=== PATIENT | male | born 1965 | race Caucasian/White ===

== ENCOUNTER 2022-12-03 20:15 | Emergency (ER) | payer OTHER, SELFPAY ==
[2022-12-03 20:23] VITALS: BP 128/64; PULSE 101; RESP 16; TEMP 37.4; O2SAT 99
[2022-12-03 21:36] LABS: Lactate 1.1 mmol/L (0.6-1.4)
[2022-12-03 21:40] LABS: Abs Immature Grans 0.02 10^3/uL (0.0-0.06); Absolute Basophil Count 0.03 10^3/uL (0.0-0.2); Absolute Eosinophil Count 0.13 10^3/uL (0.0-0.7); Absolute Lymphocyte Count 0.81 10^3/uL (1.2-3.4); Absolute Monocyte Count 0.71 10^3/uL (0.1-0.8); Absolute Neutrophil Count 4.32 10^3/uL (1.2-6.7); Basophils % 0.5; Eosinophils % 2.2; HCT 44.1 % (40.0-50.0); HGB 16.2 g/dL (13.5-17.5); Immature Grans % 0.3; Lymphocytes % 13.5; MCH 33.3 pg (27.0-33.0); MCHC 36.7 % (32.0-36.0); MCV 91 fL (80-95); MPV 9.3 fL (8.0-11.0); Monocytes % 11.8; Neutrophils % 71.7; Platelet Count 127 10^3/uL (130-400); RBC 4.87 10^6/uL (4.36-5.78); RDW 11.7 % (11.8-14.1); RDW-SD 38.5 fL; WBC 6.02 10^3/uL (4.4-10.8)
[2022-12-03 21:53] LABS: ALT 62 U/L (16-63); AST 22 U/L (15-37); Albumin 3.8 g/dL (3.4-5.0); Alkaline Phosphatase 78 U/L (46-116); Anion Gap 9.7 mmol/L (3-11); BUN 15 mg/dL (7-18); Bilirubin, Total 1.7 mg/dL (0.2-1.0); CO2 27.3 mmol/L (21.0-32.0); CREATININE 1.1 mg/dL (0.70-1.30); Calcium 8.7 mg/dL (8.5-10.1); Chloride 101 mmol/L (98-107); Glucose 118 mg/dL (74-106); Magnesium 1.8 mg/dL (1.8-2.4); Potassium 4.1 mmol/L (3.5-5.1); Sodium 138 mmol/L (136-145); Total Protein 6.7 g/dL (6.4-8.2)
--- NOTE | 2022-12-03 22:15 | DI.RAD_ITS ---
Exam(s) XR CHEST 2V PA LATERAL EXAM: XR CHEST 2V PA LATERAL CLINICAL HISTORY: Cough, Body aches, R/O PNA. TECHNIQUE: 2D digital imaging was performed. COMPARISON: No exams were available for comparison FINDINGS: 2 views: Heart size is normal. The mediastinum is not widened. Lungs are clear. No infiltrates nor pleural effusions. IMPRESSION: No acute pulmonary findings. DATA REPOSITORY: RADIATION DOSE DELIVERED:
[2022-12-03 22:18] LABS: Bilirubin Negative (Negative); Blood Negative (Negative); Clarity Clear (Clear); Glucose Negative (Negative); Ketones Negative (Negative); Leukocyte Esterase Negative (Negative); Nitrite Negative (Negative)
[2022-12-03] MEDS: Normal Saline 500 ML IV (22:20)
[2022-12-03 22:23] LABS: Bacteria Rare HPF (Negative); C & S Indicated? No; Crystals Negative HPF (Negative); Epithelial Cells Negative HPF (Negative); Mucus Trace (Negative); RBC 0-2 HPF (0-2); WBC 0-2 HPF (0-5)
--- NOTE | 2022-12-03 22:30 | W.ED.GENAD ---
Discharge Plan Disposition Patient Disposition: Home Condition: Stable Discharge Details Clinical Impression: Influenza A, Low platelet count Primary Care Provider: [facility] Provider: Destiny Redding Home Meds and New Rx's Prescriptions: New oseltamivir [Tamiflu] 75 mg capsule 75 mg PO BID 5 Days Qty: 10 0RF benzonatate 100 mg capsule 100 mg PO TID PRN (Reason: cough) Qty: 14 0RF Rx Instructions: Take 1 capsule up to 3 times daily as needed for cough prednisone 20 mg tablet 40 mg PO DAILY 5 Days Qty: 10 0RF Rx Instructions: Take 2 tablets in the a.m. for the next 5 days No Action atorvastatin 20 mg Tablet 20 mg PO DAILY Discharge Instructions Instructions: H1N1 Influenza (ED) Additional Instructions: Take medications as directed. Please use your albuterol inhaler 1 or 2 puffs every 4-6 hours as needed for wheezing or shortness of breath. Follow up with primary care provider in 3-5 days. Return to ED sooner if any worsening or concerns. Increase oral fluids. Stand Alone Forms: School Release Medical Decision Making 57-year-old male presents to the ER with chief complaint of URI type symptoms for the last 3 days. He reports myalgias, fever Tmax 102, headache, productive cough. He did take ibuprofen and Benadryl prior to arrival. He did have a rapid COVID test negative today. Past medical history includes high cholesterol. Does take atorvastatin. He denies any recent long trips, camping or tick bites. 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 Patient also notes that he had a bloody nose today. On initial presentation he is speaking in full sentences. He does have some rhonchi right lower lobe and wheezes in the left upper lobe and left middle lobe. Work-up ordered including CBC CMP urinalysis, magnesium chest x-ray tick and Lyme panel added onto labs, FLUVID. Normal saline 500 cc bolus, albuterol inhaler. Patient is thrombocytopenic, platelets are 127 slightly low MCH 33.3 MCHC 36.7 RDW 11.7 which glucose 118, total bilirubin 1.7 which is slightly high. Urinalysis shows trace protein, trace urobilinogen. Differential diagnosis includes but not limited to pneumonia, URI, viral illness, Lyme, Chest x-ray is within normal limits no acute findings, Lyme panel is pending at this time. Influenza A swab positive. Discussed results with patient who verbalized understanding. Discussed home care. Patient given prescription for prednisone 40 mg p.o. for 5 days, Tamiflu discussed risks and benefits of Tamiflu he opted into the Tamiflu, and [facility]. I also did discuss that he can take [id number] cough suppressants if needed. Patient remained hemodynamically stable, alert and oriented throughout the remainder of his stay, patient was given 15 mg of ketorolac IV and 500 cc normal saline. Albuterol inhaler was given to the patient here in the department. All of his questions were answered to the best my ability. This text was generated using [employer] dictation system, please disregard any oddities of phrase or misspellings. Imaging Data Radiologic Study: Imaging: X-Ray Radiologist's impression: TECHNIQUE: Imaging protocol: Radiologic exam of the chest. Views: 2 views. COMPARISON: No relevant prior studies available. FINDINGS: Lungs: Unremarkable. No consolidation. Pleural spaces: Unremarkable. No pleural effusion. No pneumothorax. Heart/Mediastinum: Unremarkable. No cardiomegaly. Bones/joints: Unremarkable. IMPRESSION: No acute findings. Thank you for allowing us to participate in the care of your patient. Dictated and Authenticated by: Gael Kendall MD Lab Data Lab results reviewed: Yes I reviewed the patient's lab results. Labs: Laboratory Tests Range/Units 12/03/22 12/03/22 12/03/22 21:30 21:30 21:30 WBC (4.4-10.8) 10^3/uL 6.02 RBC (4.36-5.78) 10^6/uL 4.87 Hgb (13.5-17.5) g/dL 16.2 Hct (40.0-50.0) % 44.1 MCV (80-95) fL 91 MCH (27.0-33.0) pg 33.3 H MCHC (32.0-36.0) % 36.7 H RDW (11.8-14.1) % 11.7 L Plt Count (130-400) 10^3/uL 127 L MPV (8.0-11.0) fL 9.3 Immature Gran % 0.3 Neutrophils % 71.7 Lymphocytes % 13.5 Monocytes % 11.8 Eosinophils % 2.2 Basophils % 0.5 Nucleated RBC % (0.0-0.3) % 0.0 Absolute Neutrophils (1.2-6.7) 10^3/uL 4.32 Absolute Lymphocytes (1.2-3.4) 10^3/uL 0.81 L Absolute Monocytes (0.1-0.8) 10^3/uL 0.71 Absolute Eosinophils (0.0-0.7) 10^3/uL 0.13 Absolute Basophils (0.0-0.2) 10^3/uL 0.03 VBG Lactate (0.6-1.4) mmol/L 1.1 Sodium (136-145) mmol/L 138 Potassium (3.5-5.1) mmol/L 4.1 Chloride (98-107) mmol/L 101 Carbon Dioxide (21.0-32.0) mmol/L 27.3 Anion Gap (3-11) mmol/L 9.7 BUN (7-18) mg/dL 15 Creatinine (0.70-1.30) mg/dL 1.1 Est GFR (CKD-EPI 2020) (mL/min/1.73m2) 78.30 Glucose (74-106) mg/dL 118 H Calcium (8.5-10.1) mg/dL 8.7 Magnesium (1.8-2.4) mg/dL 1.8 Total Bilirubin (0.2-1.0) mg/dL 1.7 H AST (15-37) U/L 22 ALT (16-63) U/L 62 Alkaline Phosphatase (46-116) U/L 78 Total Protein (6.4-8.2) g/dL 6.7 Albumin (3.4-5.0) g/dL 3.8 Urine Color (Yellow) Urine Clarity (Clear) Urine pH (5-8) Ur Specific [place] (1.005-1.025) Urine Protein (Negative) mg/dL Urine Ketones (Negative) mg/dL Urine Blood (Negative) Urine Nitrite (Negative) Urine Bilirubin (Negative) Urine Urobilinogen (Up to 0.2) mg/dL Ur Leukocyte Esterase (Negative) Urine RBC (0-2) HPF Urine WBC (0-5) HPF Ur Epithelial Cells (Negative) HPF Urine Crystals (Negative) HPF Urine Bacteria (Negative) HPF Urine Mucus (Negative) Ur Culture Indicated? Urine Glucose (Negative) mg/dL COVID-19 Source SARS-CoV-2 (PCR) (Negative) Influenza Type A (PCR) (Negative) Influenza Type B (PCR) (Negative) RSV (PCR) (Negative) Range/Units 12/03/22 12/03/22 22:00 22:36 WBC (4.4-10.8) 10^3/uL RBC (4.36-5.78) 10^6/uL Hgb (13.5-17.5) g/dL Hct (40.0-50.0) % MCV (80-95) fL MCH (27.0-33.0) pg MCHC (32.0-36.0) % RDW (11.8-14.1) % Plt Count (130-400) 10^3/uL MPV (8.0-11.0) fL Immature Gran % Neutrophils % Lymphocytes % Monocytes % Eosinophils % Basophils % Nucleated RBC % (0.0-0.3) % Absolute Neutrophils (1.2-6.7) 10^3/uL Absolute Lymphocytes (1.2-3.4) 10^3/uL Absolute Monocytes (0.1-0.8) 10^3/uL Absolute Eosinophils (0.0-0.7) 10^3/uL Absolute Basophils (0.0-0.2) 10^3/uL VBG Lactate (0.6-1.4) mmol/L Sodium (136-145) mmol/L Potassium (3.5-5.1) mmol/L Chloride (98-107) mmol/L Carbon Dioxide (21.0-32.0) mmol/L Anion Gap (3-11) mmol/L BUN (7-18) mg/dL Creatinine (0.70-1.30) mg/dL Est GFR (CKD-EPI 2020) (mL/min/1.73m2) Glucose (74-106) mg/dL Calcium (8.5-10.1) mg/dL Magnesium (1.8-2.4) mg/dL Total Bilirubin (0.2-1.0) mg/dL AST (15-37) U/L ALT (16-63) U/L Alkaline Phosphatase (46-116) U/L Total Protein (6.4-8.2) g/dL Albumin (3.4-5.0) g/dL Urine Color (Yellow) Yellow Urine Clarity (Clear) Clear Urine pH (5-8) 7.0 Ur Specific [place] (1.005-1.025) 1.020 Urine Protein (Negative) mg/dL Trace H Urine Ketones (Negative) mg/dL Negative Urine Blood (Negative) Negative Urine Nitrite (Negative) Negative Urine Bilirubin (Negative) Negative Urine Urobilinogen (Up to 0.2) mg/dL 1.0 H Ur Leukocyte Esterase (Negative) Negative Urine RBC (0-2) HPF 0-2 Urine WBC (0-5) HPF 0-2 Ur Epithelial Cells (Negative) HPF Negative Urine Crystals (Negative) HPF Negative Urine Bacteria (Negative) HPF Rare Urine Mucus (Negative) Trace Ur Culture Indicated? No Urine Glucose (Negative) mg/dL Negative COVID-19 Source Nasopharynx SARS-CoV-2 (PCR) (Negative) Negative Influenza Type A (PCR) (Negative) Positive A Influenza Type B (PCR) (Negative) Negative RSV (PCR) (Negative) Negative HPI General Mode of arrival: ambulatory. Date/Time Provider Initiated Documentation: 12/03/22 20:42. Limitations to Documentation: no limitations. Information obtained by: patient, RN notes reviewed and old records reviewed. HPI Narrative: 57-year-old male presents to the ER with chief complaint of URI type symptoms for the last 3 days. He reports myalgias, fever Tmax 102, headache, productive cough. He did take ibuprofen and Benadryl prior to arrival. He did have a rapid COVID test negative today. Past medical history includes high cholesterol. Does take atorvastatin. He denies any recent long trips, camping or tick bites. 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 On initial presentation he is speaking in full sentences. He does have some rhonchi right lower lobe and wheezes in the left upper lobe and left middle lobe. Related Data Home Medications Medication Instructions Recorded Confirmed atorvastatin 20 mg tablet 20 mg PO DAILY 12/03/22 12/03/22 benzonatate 100 mg capsule 100 mg PO TID PRN cough #14 caps 12/03/22 oseltamivir 75 mg capsule (Tamiflu) 75 mg PO BID 5 days #10 caps 12/03/22 prednisone 20 mg tablet 40 mg PO DAILY URI 5 days #10 tabs 12/03/22 Previous Rx's Medication Instructions Recorded benzonatate 100 mg capsule 100 mg PO TID PRN cough #14 caps 12/03/22 oseltamivir 75 mg capsule (Tamiflu) 75 mg PO BID 5 days #10 caps 12/03/22 prednisone 20 mg tablet 40 mg PO DAILY URI 5 days #10 tabs 12/03/22 Allergies Allergy/AdvReac Type Severity Reaction Status Date / Time cefuroxime [From Ceftin] Allergy Unverified 12/03/22 20:29 General Stated Complaint: GenMedical EARNEST: 3 Review of Systems All systems reviewed & are unremarkable except as noted in HPI and below Constitutional Constitutional: Reports as per HPI, Reports chills, Reports fatigue, Reports fever(s) and Reports headache(s) ENT Ears, Nose, Mouth, and Throat: Reports headache(s) Respiratory Respiratory: Reports chest congestion, Reports cough, Reports excessive phlegm production and Reports wheezing Gastrointestinal Gastrointestinal: Denies abdominal pain, Denies melena, Denies hematochezia, Denies change in bowel habits, Denies diarrhea, Denies nausea and Denies vomiting Genitourinary Genitourinary: Denies dysuria Neurologic Neurologic: Reports headache(s) Endocrine Endocrine: Reports fatigue Allergic/Immunologic Allergic/Immunologic: Reports wheezing PFSH All Active Problems (Updated 12/03/22 @ 23:56 by Destiny Redding NP) Influenza A (Acute) Low platelet count (Acute) Medical History (Updated 12/03/22 @ 23:56 by Destiny Redding NP) Hyperlipidemia Social History (Updated 12/03/22 @ 22:35 by Destiny Redding NP) Smoking/Tobacco Use Status: Never Smoking risk assessment performed?: Yes Alcohol Intake: current Alcohol Intake frequency: a few times a week Counseling given: No Substance use type: does not use Exam Narrative Exam Narrative: Constitutional: Alert and oriented x3. Appears stated age. Overweight body habitus. Head: Normocephalic, no trauma. Eyes: Pupils PERRL, Red reflex noted, EOM's intact. Eyelids symmetrical without lesions, discharge, or swelling. ENT: , External ear normal to inspection, no mastoid TTP, swelling, or erythema, Normal dentition, Chest: RRR, Normal S1, S2, distal pulses intact. Resp: Lungs rhonchi in the bases, upper lobes wheezing scattered. Abdomen: Soft, non-distended, Normoactive bowel sounds all 4 quads. Reports uncomfortable all 4 quadrants no masses no guarding no rebound tenderness. Musculoskeletal: Normal gait, 5/5 strength to all four extremities. Skin: No suspicious rashes or lesions. Capillary refill less than 2 sec. Neurologic: Cranial nerves II-XII intact. Alert and oriented x 3. Motor: No deficits noted. Sensory: Intact bilaterally all 4 extremities. Reflexes: DTR's intact bilaterally.. Hematologic/Lymphatic: No ecchymosis, no lymphadenopathy. No lower extremity edema. Course Vital Signs Vital signs: Vital Signs Temperature 37.4 C 12/03/22 20:23 Pulse 101 H 12/03/22 20:23 Respiratory Rate 16 12/03/22 20:23 Blood Pressure 128/64 12/03/22 20:23 Pulse Oximetry 99 12/03/22 20:23 Temperature 37.4 C 12/03/22 20:23 Temperature Source Temporal Artery Scan 12/03/22 20:23 Pulse 101 H 12/03/22 20:23 Respiratory Rate 16 12/03/22 20:23 Respiratory Effort Normal 12/03/22 20:23 Blood Pressure 128/64 12/03/22 20:23 Blood Pressure Position Sitting 12/03/22 20:23 Pulse Oximetry 99 12/03/22 20:23 Oxygen Delivery Method Room Air 12/03/22 20:23 Oxygen Flow Rate 0 12/03/22 20:23 Pain Level 3 12/03/22 20:23 Lab/Test Results Lab/Test Results: Laboratory Tests Range/Units 12/03/22 12/03/22 12/03/22 21:30 21:30 21:30 WBC (4.4-10.8) 10^3/uL 6.02 RBC (4.36-5.78) 10^6/uL 4.87 Hgb (13.5-17.5) g/dL 16.2 Hct (40.0-50.0) % 44.1 MCV (80-95) fL 91 MCH (27.0-33.0) pg 33.3 H MCHC (32.0-36.0) % 36.7 H RDW (11.8-14.1) % 11.7 L Plt Count (130-400) 10^3/uL 127 L MPV (8.0-11.0) fL 9.3 Immature Gran % 0.3 Neutrophils % 71.7 Lymphocytes % 13.5 Monocytes % 11.8 Eosinophils % 2.2 Basophils % 0.5 Nucleated RBC % (0.0-0.3) % 0.0 Absolute Neutrophils (1.2-6.7) 10^3/uL 4.32 Absolute Lymphocytes (1.2-3.4) 10^3/uL 0.81 L Absolute Monocytes (0.1-0.8) 10^3/uL 0.71 Absolute Eosinophils (0.0-0.7) 10^3/uL 0.13 Absolute Basophils (0.0-0.2) 10^3/uL 0.03 VBG Lactate (0.6-1.4) mmol/L 1.1 Sodium (136-145) mmol/L 138 Potassium (3.5-5.1) mmol/L 4.1 Chloride (98-107) mmol/L 101 Carbon Dioxide (21.0-32.0) mmol/L 27.3 Anion Gap (3-11) mmol/L 9.7 BUN (7-18) mg/dL 15 Creatinine (0.70-1.30) mg/dL 1.1 Est GFR (CKD-EPI 2020) (mL/min/1.73m2) 78.30 Glucose (74-106) mg/dL 118 H Calcium (8.5-10.1) mg/dL 8.7 Magnesium (1.8-2.4) mg/dL 1.8 Total Bilirubin (0.2-1.0) mg/dL 1.7 H AST (15-37) U/L 22 ALT (16-63) U/L 62 Alkaline Phosphatase (46-116) U/L 78 Total Protein (6.4-8.2) g/dL 6.7 Albumin (3.4-5.0) g/dL 3.8 Urine Color (Yellow) Urine Clarity (Clear) Urine pH (5-8) Ur Specific [place] (1.005-1.025) Urine Protein (Negative) mg/dL Urine Ketones (Negative) mg/dL Urine Blood (Negative) Urine Nitrite (Negative) Urine Bilirubin (Negative) Urine Urobilinogen (Up to 0.2) mg/dL Ur Leukocyte Esterase (Negative) Urine RBC (0-2) HPF Urine WBC (0-5) HPF Ur Epithelial Cells (Negative) HPF Urine Crystals (Negative) HPF Urine Bacteria (Negative) HPF Urine Mucus (Negative) Ur Culture Indicated? Urine Glucose (Negative) mg/dL Range/Units 12/03/22 22:00 WBC (4.4-10.8) 10^3/uL RBC (4.36-5.78) 10^6/uL Hgb (13.5-17.5) g/dL Hct (40.0-50.0) % MCV (80-95) fL MCH (27.0-33.0) pg MCHC (32.0-36.0) % RDW (11.8-14.1) % Plt Count (130-400) 10^3/uL MPV (8.0-11.0) fL Immature Gran % Neutrophils % Lymphocytes % Monocytes % Eosinophils % Basophils % Nucleated RBC % (0.0-0.3) % Absolute Neutrophils (1.2-6.7) 10^3/uL Absolute Lymphocytes (1.2-3.4) 10^3/uL Absolute Monocytes (0.1-0.8) 10^3/uL Absolute Eosinophils (0.0-0.7) 10^3/uL Absolute Basophils (0.0-0.2) 10^3/uL VBG Lactate (0.6-1.4) mmol/L Sodium (136-145) mmol/L Potassium (3.5-5.1) mmol/L Chloride (98-107) mmol/L Carbon Dioxide (21.0-32.0) mmol/L Anion Gap (3-11) mmol/L BUN (7-18) mg/dL Creatinine (0.70-1.30) mg/dL Est GFR (CKD-EPI 2020) (mL/min/1.73m2) Glucose (74-106) mg/dL Calcium (8.5-10.1) mg/dL Magnesium (1.8-2.4) mg/dL Total Bilirubin (0.2-1.0) mg/dL AST (15-37) U/L ALT (16-63) U/L Alkaline Phosphatase (46-116) U/L Total Protein (6.4-8.2) g/dL Albumin (3.4-5.0) g/dL Urine Color (Yellow) Yellow Urine Clarity (Clear) Clear Urine pH (5-8) 7.0 Ur Specific [place] (1.005-1.025) 1.020 Urine Protein (Negative) mg/dL Trace H Urine Ketones (Negative) mg/dL Negative Urine Blood (Negative) Negative Urine Nitrite (Negative) Negative Urine Bilirubin (Negative) Negative Urine Urobilinogen (Up to 0.2) mg/dL 1.0 H Ur Leukocyte Esterase (Negative) Negative Urine RBC (0-2) HPF 0-2 Urine WBC (0-5) HPF 0-2 Ur Epithelial Cells (Negative) HPF Negative Urine Crystals (Negative) HPF Negative Urine Bacteria (Negative) HPF Rare Urine Mucus (Negative) Trace Ur Culture Indicated? No Urine Glucose (Negative) mg/dL Negative
[2022-12-03] MEDS: Ketorolac 15 MG/ML VIAL IVP (22:50)
[2022-12-03 23:19] LABS: COVID-19 PCR Negative (Negative); Influenza A PCR Positive (Negative); Influenza B PCR Negative (Negative); RSV PCR Negative (Negative)
[2022-12-03 23:24] LABS: Source Nasopharynx
--- NOTE | 2022-12-03 23:39 | DI.VRAD_ITS ---
PROCEDURE INFORMATION: Exam: XR Chest Exam date and time: 12/03/2022 10:45 PM Age: 57 years old Clinical indication: Cough and other: Cough, body aches, R/O pna TECHNIQUE: Imaging protocol: Radiologic exam of the chest. Views: 2 views. COMPARISON: No relevant prior studies available. FINDINGS: Lungs: Unremarkable. No consolidation. Pleural spaces: Unremarkable. No pleural effusion. No pneumothorax. Heart/Mediastinum: Unremarkable. No cardiomegaly. Bones/joints: Unremarkable. IMPRESSION: No acute findings. Dictated and Authenticated by: Gael Kendall MD. Ordering:ISH Dixon MD
[2022-12-03 23:43] VITALS: RESP 20
[2022-12-03] MEDS: Oseltamivir 75 MG CAP PO (23:55)
[2022-12-03] MEDS: Benzonatate 100 MG CAP PO ×2 (23:55)
[2022-12-05 11:41] LABS: Lyme Ab w Rflx to Lyme Confirm Negative (Negative)
[2022-12-07 14:34] LABS: Anaplasma phagocytophilum Negative (Negative); B. miyamotoi PCR Negative (Negative); Babesia divergens/MO-1 Negative (Negative); Babesia duncani Negative (Negative); Babesia microti Negative (Negative); Ehrlichia chaffeensis Negative (Negative); Ehrlichia ewingii/canis Negative (Negative); Ehrlichia muris eauclairensis Negative (Negative)
== END 2022-12-04 | disposition home or self-care (01) ==
PROVIDERS: Emergency Provider Registered Nurse Emergency
DX: J10.1 Influenza due to other identified influenza virus with other respiratory manifestations (principal); D69.6 Thrombocytopenia, unspecified
CPT/HCPCS: 80053; 87637; 87798; 96374; 99284; 71046; 81003; 81015; 83605; 83735; 85025; 86618; J1885